=== PATIENT | female | born 1935 | race Caucasian/White ===

== ENCOUNTER 2023-08-22 13:41 | Emergency (ER) | payer OTHER ==
[~2023-08-22] VITALS: Ht 165.1 cm; Wt 99.8 kg
[2023-08-22 13:45] VITALS: BP_SYST 198; PULSE 76; RESP 19; TEMP 98; O2SAT 96
[2023-08-22] MEDS ORDERED: SULF1TAB47 PO (15:55)
[2023-08-22] MEDS: cloNIDine HCL 0.1 MG TABLET PO ONE (16:41)
[2023-08-22 18:00] VITALS: BP_SYST 157; PULSE 71; RESP 18; TEMP 97.9; O2SAT 95
== END 2023-08-22 17:52 ==
LOC: SED 13:41
DX: N76.4 Abscess of vulva (principal); R03.0 Elevated blood-pressure reading, without diagnosis of hypertension; E11.9 Type 2 diabetes mellitus without complications; E78.5 Hyperlipidemia, unspecified; J44.9 Chronic obstructive pulmonary disease, unspecified; Z88.1 Allergy status to other antibiotic agents
CPT/HCPCS: 82948; 99283